=== PATIENT | female | born 1990 | race Caucasian/White ===

== ENCOUNTER → 2017-08-04 | Outpatient (CLI) | payer BC ==
[~2017-08-04] MED LIST: FRRS300 PO; INSPMPHMLG SC; INSUINJ SC; MTR600X PO; PREN1TAB29
== END | disposition home or self-care (01) ==
LOC: C.PAPS 07:56
PROVIDERS: ATTEND Physician Assistant
DX: Z01.419 Encounter for gynecological examination (general) (routine) without abnormal findings (principal)

== ENCOUNTER → 2017-09-26 | Outpatient (CLI) | payer BC ==
[2017-09-26 14:38] LABS: BASO % 0.1 %; BASO ABS # 0.01 K/uL (0-0.2); EOS % 0.7 %; EOS ABS # 0.08 K/uL (0-0.5); HEMATOCRIT 36.6 % (37-47); IG# 0.02 K/uL (0.00-0.02); LYMPH ABS # 2.79 K/uL (1.2-3.4); MEAN CELL VOLUME 85.7 fL (80-100); MEAN CORPUSCULAR HEMOGLOBIN 28.1 pg (25-34); MEAN CORPUSCULAR HGB CONC 32.8 g/dl (32-36); MEAN PLATELET VOLUME 10.1 fL (7.4-10.4); MONO % 5.3 %; MONO ABS # 0.59 K/uL (0.11-0.59); NEUT % 68.7 %; NEUT ABS # 7.69 K/uL (1.4-6.5); PLATELET COUNT 346 K/uL (130-400); RED CELL DISTRIBUTION WIDTH CV 13.1 % (11.5-14.5); RED CELL DISTRIBUTION WIDTH SD 41.3 fL (36.4-46.3); WHITE BLOOD COUNT 11.18 K/uL (4.8-10.8)
== END | disposition home or self-care (01) ==
LOC: C.LAB1850 12:27
PROVIDERS: ATTEND Obstetrics & Gynecology
DX: Z34.91 Encounter for supervision of normal pregnancy, unspecified, first trimester (principal)

== ENCOUNTER 2020-02-28 05:35 | Inpatient (IN) ==
--- NOTE | 2020-02-27 18:29 | History & Physical Report ---
Date of Service February 27, 2020 Assessment & Plan (1) Previous delivery affecting , antepartum: (2) Diet controlled gestational diabetes mellitus: Will plan c/s with tubal ligation in am. will check am bsg. questions answered. consent reviewed and signed. Risks, alternatives and complications of procedure section and bilateral tubal ligation reviewed with patient and include but are not limited to bleeding, infection, anesthesia, injury to maternal or structures, injury to bowel, bladder, vessels, nerves, ureters, delayed complication, failure of procedure with resultant , ectopic which can be medical emergency. Patient desires to proceed and consent signed. She is aware of preop and postop instructions and course. History of Present Illness Chief Complaint: planned repeat c/s and tubal sterilization Primary Care Provider: Chen Meadows MD 29yo at 39wkega on day of her admission for above cc. She denies rom, vb. +FM. No ctx. She had recent neg covid test. She is sure she wants to proceed with permanent sterilization. PNC c/b 1. prior c/s x 2, at last c/s CARLOS was noted to be thin per the surgeon in op note 2. desires sterilization. 3. GDM, diet controlled. PNL rh pos, ri, gbs neg Allergies Allergy/AdvReac Type Severity Reaction Status Date / Time No Known Allergies Allergy Verified 02/27/20 13:11 Home Medications Home Medications Medication Instructions Recorded Confirmed Type PNV cmb#95-ferrous fumarate-FA 1 tab PO QAM 05/16/18 02/27/20 History [] blood sugar diagnostic #200 ea 10/18/19 02/27/20 Rx Patient History Medical History (Updated 02/26/20 @ 10:15 by Anna Carbajal RN) Anemia ASCUS of cervix with negative high risk HPV Gestational diabetes DIET CONTROLLED Surgical History (Updated 02/27/20 @ 18:30 by Sobeida Denny MD, FACOG) delivery delivered x 2 H/O wisdom tooth extraction History of tonsillectomy Hx of arthroscopy RIGHT KNEE Social History (Updated 08/01/19 @ 10:01 by Rosetta Méndez) Preferred Language: Tamazight Communication Ability: Effective Ash Kier Boiler Required: No Beliefs That Will Affect Care: None marital status: Single marital status details: Cristiano Kraus (27) [phone] Current Living Situation: Spouse Current Living Situation Comment: lives with spouse and children, 1 dog, 1 cat, does not change litter current occupational status: unemployed current occupation: homemaker Feels Safe at Home: Yes Smoking Status: Never smoker Second Hand Exposure: No ; Hx Alcohol Use: No Hx Substance Use: No Review of Systems as per hpi Physical Exam Constitutional: WD/WN, vitals as above Respiratory: normal respiratory effort, lungs clear to auscultation Cardiovascular: Rate/Rhythm: regular rate and regular rhythm Gastrointestinal (Abdomen): Percussion/Palpation: abdomen soft (gravid); abdomen nontender Musculoskeletal: nt calves Neurologic: grossly normal Psychiatric: A+Ox3, euthymic affect Genitourinary: OB Exam Abdomen: + vertex (by Jorge's) Coding Level of Care Code None Diagnoses Previous delivery affecting , antepartum O34.219 Diet controlled gestational diabetes mellitus O24.410
[2020-02-28] MEDS ORDERED: LACTATED RINGER'S 1,000 ML IV SCH ×2 (05:45→09:00)
[2020-02-28] MEDS ORDERED: CITRIC ACID/SODIUM CITRATE 15 ML UDC PO SCH (06:00)
[2020-02-28] MEDS ORDERED: CEFAZOLIN 2000MG 2,000 MG/15 ML SYR IV SCH (06:00)
[2020-02-28 06:04] LABS: Basophils # (auto) 0.01 K/uL (0-0.2); Basophils % (auto) 0.1 %; Eosinophils % (auto) 0.8 %; Hematocrit (blood only) 34.4 % (37-47); Hemoglobin 11.4 g/dL (12.0-16.0); Immature Granulocytes # (auto) 0.11 K/uL (0.00-0.02); Immature Granulocytes % (auto) 0.8 %; Lymphocytes # (auto) 3.28 K/uL (1.2-3.4); Lymphocytes % (auto) 25.2 %; Mean Corpuscular Hemoglobin 29.2 pg (25-34); Mean Corpuscular Hgb Conc 33.1 g/dL (32-36); Mean Corpuscular Volume 88.2 fL (80-100); Mean Platelet Volume 10.4 fL (7.4-10.4); Monocytes # (auto) 1.15 K/uL (0.11-0.59); Monocytes % (auto) 8.8 %; Neutrophils # (auto) 8.37 K/uL (1.4-6.5); Neutrophils % (auto) 64.3 %; Platelet Count 214 K/uL (130-400); RDW Coefficient of Variation 13.1 % (11.5-14.5); RDW Standard Deviation 41.7 fL (36.4-46.3); White Blood Count 13.02 K/uL (4.8-10.8)
[2020-02-28] MEDS ORDERED: NALOXONE HCL 0.08 MG in SYRINGE 1.8 ML IV PRN (07:12)
[2020-02-28] MEDS ORDERED: LACTATED RINGER'S 500 ML IV PRN (07:12)
[2020-02-28] MEDS ORDERED: MoRPHine SULFATE PF 1 MG/ML 10 ML AMP/VIAL INT SPINAL ONE (07:12)
[2020-02-28] MEDS ORDERED: ONDANSETRON INJ 2 MG/ML 2 ML VIAL IV PRN ×2 (07:12→08:56)
[2020-02-28] MEDS ORDERED: NALOXONE HCL 0.4 MG/1 ML VIAL/CARP IV PRN (07:12)
[2020-02-28] MEDS ORDERED: ePHEDrine sulfate 50 MG/ML AMP IV PRN (07:12)
[2020-02-28] MEDS ORDERED: DiphenhydrAMINE HCL 50 MG/ML VIAL IV PRN (07:12)
[2020-02-28] MEDS ORDERED: NALOXONE HCL 1 MG in SODIUM CHLORIDE 0.9% 1000ML 1,000 ML IV PRN (07:12)
[2020-02-28] MEDS ORDERED: HYDROmorphone INJ 0.5 MG/0.5 ML SYR IV PRN (07:12)
[2020-02-28] MEDS ORDERED: SODIUM CHLORIDE 0.9% 1000ML 1,000 ML IV SCH (07:15)
[2020-02-28] MEDS ORDERED: NO NARCOTICS OR SEDATIVES SCH (07:15)
--- NOTE | 2020-02-28 07:22 | History & Physical Bridge Note ---
Date of Service February 28, 2020 History & Physical Bridge Note I have examined the patient, reviewed the History & Physical and in the interval since the performance of the History & Physical I have noted the following changes of clinical significance: no changes noted
--- NOTE | 2020-02-28 07:22 | Anesthesiology Consultation ---
Date of Service February 28, 2020 Covid 19 test negative on 02/25/20. Assessment & Plan (1) Encounter for pre-operative examination: Chart Review Chart Review: Acceptable Risk for Surgery and Patient NOT seen in Pre Admission Testing Consults Requested none History Surgery Operation Date: 02/28/20 07:30 Proposed Procedures p Section, - Sobeida Denny MD, FACOG s with Bilateral Tubal Ligation - Sobeida Denny MD, FACOG Height/Weight Height: 5 ft 4 in Weight: 73.482 kg Allergies Allergy/AdvReac Type Severity Reaction Status Date / Time No Known Allergies Allergy Verified 02/27/20 13:11 Medications Home Medications Medication Instructions Recorded Confirmed Last Taken PNV cmb#95-ferrous fumarate-FA 1 tab PO QAM 05/16/18 02/28/20 02/27/20 08:00 [] blood sugar diagnostic #200 ea 10/18/19 02/27/20 Unknown NPO Date Last Intake of Fluids: 02/27/20 Time Last Intake of Fluids: 23:00 Date Last Intake of Solids: 02/27/20 Time Last Intake of Solids: 21:00 Past Medical History Medical History Anemia ASCUS of cervix with negative high risk HPV Gestational diabetes DIET CONTROLLED Past Family History Family History Mother Anemia Dyslipidemia Cervical cancer Ovarian cancer Grandmother (Paternal) Diabetes Hypertension Grandmother (Maternal) Diabetes Grandfather (Paternal) Diabetes Hypertension Grandfather (Maternal) Diabetes Father Hypertension Dyslipidemia Multiple renal calculi Family/Other Breast cancer Gestational diabetes Other Heart disease Past Surgical History Surgical History delivery delivered x 2 H/O wisdom tooth extraction History of tonsillectomy Hx of arthroscopy RIGHT KNEE Social History Smoking Status: Never smoker Do You Dip or Chew Tobacco: No Hx Alcohol Use: No Hx Substance Use: No substance use type: does not use Physical Exam Vital Signs Last Vital Signs Temp 36.9 C 02/28/20 05:43 Pulse 85 02/28/20 07:21 Resp 18 02/28/20 05:43 BP 125/81 02/28/20 07:11 Pulse Ox 98 02/28/20 07:21 Testing Laboratory Results 02/28/20 05:48 Blood Type A Positive 02/28/20 05:48 Antibody Screen NEGATIVE 02/28/20 05:48
[2020-02-28] MEDS ORDERED: MoRPHine SULFATE PF 1 MG/ML 10 ML AMP/VIAL ONE (07:29)
[2020-02-28] MEDS ORDERED: fentaNYL citrate 100 MCG/2 ML VIAL ONE (07:30)
[2020-02-28] MEDS ORDERED: OXYTOCIN 10 UNITS/ML VIAL ONE (07:31)
[2020-02-28] MEDS ORDERED: PHENYLEPHRINE 100MCG/ML 5ML SYR ONE (07:53)
[2020-02-28] MEDS ORDERED: ONDANSETRON INJ 2 MG/ML 2 ML VIAL ONE (08:12)
--- NOTE | 2020-02-28 08:46 | Post Operative Brief Note ---
PG Immediate Post Op with CF Date of Surgery February 28, 2020 Pre & Post Diagnosis Operation Date: 02/28/20 07:30 1. Prior section x2, Desires repeat section 2. Desires sterilization 3. Gestational diabetes, diet controlled. I identified the patient and participated in the time-out.: Yes Procedure Operation Date: 02/28/20 07:30 1. Repeat low transverse section 2. Modified [place] Bilateral Tubal Ligation Surgeon Sobeida Denny MD, FACOG Management Rep Sana Estimated Blood Loss 700 Findings Consistent with Post-Op Diagnosis (viable male apgars pending, normal uterus tubes and ovaries bilaterally) Fluids 1800 Specimens Specimen Description: placenta hold, cord blood Drains Panda Catheter Anesthesia Type Spinal Complications none Disposition Accompanied Patient To Recovery: No Disposition: L&D
--- NOTE | 2020-02-28 08:55 | Operative Report ---
PG Post Operative Report Pre & Post Diagnosis Operation Date: 02/28/20 07:30 1. 39 week intrauterine 2. Gestational diabetes, diet controlled 3. Prior section x 2, desires repeat section 4. Desires sterilization I identified the patient and participated in the time-out.: Yes Procedure Operation Date: 02/28/20 07:30 1. Repeat Low Transverse Section 2. Modified [place] Bilateral Tubal Ligation Surgeon Sobeida Denny MD, FACOG Pharmacy Technician Program Director Sana Estimated Blood Loss 700 Findings Consistent with Post-Op Diagnosis (viable male apgars 9,9. normal uterus, tubes and ovaries bilaterally) Fluids 1800 Specimens cord blood Drains mosqueda Anesthesia Type Spinal Complications none Disposition Accompanied Patient To Recovery: No Disposition: L&D Indications 29yo at 39wks ega presented to LD for planned repeat section and desires sterilization. No evidence of labor. Ready to proceed. Description of Procedure The patient was taken to the operating room and identified. After adequate anesthesia was obtained, she was placed in the supine position with a leftward tilt on the operating table and prepped and draped in the usual sterile fashion. A mosqueda catheter had already been placed. The knife was used to create a Pfannensteil skin incision that was carried down to the underlying layer of fascia. The fascia was nicked in the midline and this opening was extended laterally using Hilliard scissors. Jocelyn clamps were placed on the superior and inferior aspect of the fascial incision tenting it upward and the underlying rectus muscles were dissected off the overlying fascia both sharply and bluntly using Hilliard scissors. The rectus muscles were bluntly in the midline. The peritoneal cavity was bluntly entered into. This opening was stretched. The bladder blade was placed. The vesicouterine peritoneum was elevated and opened up into and the bladder flap was created digitally and bladder blade was replaced. The knife was used to create a hysterotomy and this opening was stretched. The operators hand was placed through the hysterotomy and the bladder blade was removed. The head was elevated and flexed and with fundal pressure the head was delivered. The shoulders and body were rapidly delivered. The cord was clamped and cut and the infant's mouth and nares were bulb suction. The infant was handed off to the awaiting pediatricians. Cord blood was obtained. The placenta was manually expressed. The uterus was ex teriorized and cleared of all clots and debris. Dilute IV Pitocin was begun. The uterine tone was improving. The hysterotomy was closed in a running interlocking fashion using 0 Vicryl followed by a second imbricating layer of 0 Vicryl. The hysterotomy was hemostatic. Attention was turned to the right fallopian tube that was followed out to its fimbriated end. The tube was elevated using a zaida clamp and a knuckle of tube was doubly ligated with 2-0 plain suture and transected. The specimen was sent. The stumps were cauterized with the bovie. The left fallopian tube was identified to its fimbriated end, elevated, double ligated and transected in a similar fashion. The specimen was sent and the stump of tube was cauterized with the bovie.The pelvis was irrigated. The uterus was returned to the abdomen. The gutters were cleared of all clots and debris. The hysterotomy was reinspected and noted to be hemostatic. The fascia was then closed in running fashion using 0 Vicryl. The subcutaneous fat was copiously irrigated and reapproximated using 2-0 chromic. The skin was closed in a subcuticular fashion using 4-0 Vicryl. At this point the procedure was terminated. The patient was transferred to the recovery room in stable condition. All sponge, lap and needle counts are correct x2. I attest to the content of the Intraoperative Record and any orders documented therein. Any exceptions are noted below. OB Procedure charges OB Charges 54173 C/S w/ Tubal
[2020-02-28] MEDS ORDERED: DIPHTHERIA/TETANUS/PERTUSSIS 0.5 ML SYR/VIAL IM ONE (08:56)
[2020-02-28] MEDS ORDERED: BENZOCAINE 20% AER SPR 82.5 GM CAN EXT PRN (08:56)
[2020-02-28] MEDS ORDERED: MAGNESIUM HYDROXIDE SUSP 30 ML UDC PO PRN (08:56)
[2020-02-28] MEDS ORDERED: SUPERCREAM 0.870% 15 GM JAR EXT PRN (08:56)
[2020-02-28] MEDS ORDERED: HYDROCORTISONE ACETATE 25 MG SUPP PR PRN (08:56)
--- NOTE | 2020-02-28 09:18 | Anesthesiology Progress Note ---
Date of Service February 28, 2020 Anesthesia Post Procedure Vital Signs Vital Signs: Temp Pulse Resp BP Pulse Ox 02/28/20 09:15 60 97 02/28/20 09:13 52 L 102/59 L 02/28/20 09:10 51 L 98 02/28/20 09:09 62 94 02/28/20 09:05 61 98 02/28/20 09:03 55 L 94/51 L 02/28/20 09:00 63 18 98 02/28/20 08:55 59 L 98 02/28/20 08:51 63 113/54 L 02/28/20 08:50 36.3 C L 59 L 16 98 02/28/20 07:36 77 98 02/28/20 07:31 74 98 02/28/20 07:26 81 99 02/28/20 07:21 85 98 02/28/20 07:16 83 98 02/28/20 07:11 76 125/81 02/28/20 05:43 36.9 C 18 02/28/20 05:40 88 121/88 Transfer of Care Handoff Completed per policy Notes Mental Status: alert / awake / arousable Patient Amnestic to Procedure: Yes Nausea / Vomiting: adequately controlled Pain: adequately controlled Airway Patency, RR, SpO2: stable & adequate BP & HR: stable & adequate Hydration State: stable & adequate Neuraxial Anesthesia: was administered and sensory block is resolving Anesthetic Complications: no major complications apparent and Pt Satisfied with anesthetic care
[2020-02-28] MEDS ORDERED: PROMETHAZINE HCL 12.5 MG in SODIUM CHLORIDE 0.9% 50 ML IV STA (10:00)
[2020-02-28] MEDS: OXYTOCIN 20 UNITS in LACTATED RINGER'S 1,000 ML IV SCH ×2 (10:39→19:53)
[2020-02-28] MEDS: KETOROLAC 30 MG/ML VIAL IV PRN ×2 (12:27→18:20)
[2020-02-28] MEDS: SIMETHICONE 80 MG CHEW PO SCH (21:10)
[2020-02-28] MEDS: DOCUSATE SODIUM 100 MG CAP PO SCH (21:10)
[2020-02-29] MEDS: KETOROLAC 30 MG/ML VIAL IV PRN (00:40)
[2020-02-29] MEDS ORDERED: DC INTRASPINAL MORPHINE ONE (01:12)
[2020-02-29] MEDS ORDERED: PROMETHAZINE HCL 25 MG in SODIUM CHLORIDE 0.9% 50 ML IV PRN (01:15)
[2020-02-29] MEDS ORDERED: KETOROLAC 30 MG/ML VIAL IV PRN (01:15)
[2020-02-29] MEDS ORDERED: DiphenhydrAMINE HCL 50 MG/ML VIAL IV PRN (01:15)
[2020-02-29] MEDS: OXYCODONE/ACETAMINOPHEN 5mg/325mg TAB PO PRN ×4 (06:20→22:32)
[2020-02-29] MEDS: IBUPROFEN 600 MG TAB PO PRN ×4 (06:21→22:31)
--- NOTE | 2020-02-29 06:30 | Obstetrical Progress Note ---
Date of Service <Rodrigo Macedo MD - Last Filed: 02/29/20 06:49> February 29, 2020 Assessment & Plan <Rodrigo Macedo MD - Last Filed: 02/29/20 06:49> (1) : - Feels well today. Eating well, voiding well, ambulating well. - Pain well controlled with analgesics - Routine care - After discharge will have 6 week followup Subjective <Rodrigo Macedo MD - Last Filed: 02/29/20 06:49> Ronit is a 29 y/o female ; POD #1 following delivery at 39+ weeks; doing well this morning; light abdominal cramping & 3/10 pain well managed on analgesics; voiding well; tolerating meals overnight and able to ambulate some. Has some persistent spotting with some improvement this morning. Review of Systems Constitutional: denies fever, chills, sweat, headache Respiratory: denies shortness of breath, difficulty breathing Cardiac: denies chest pain, palpitations, chest pressure Breast: denies breast pain : denies dysuria Physical Exam <Rodrigo Macedo MD - Last Filed: 02/29/20 06:49> General: Alert, oriented. No acute distress. Cardiac: Regular rate and rhythm, no murmurs/rubs/gallops. Respiratory: Clear to auscultation bilaterally a/p, no wheezes/rales/rhonchi. No increased work of breathing. Symmetrical chest rise. No respiratory distress. Abdomen: Soft, nontender, nondistended. Bowel sounds present. Uterus: Uterine fundus firm, palpable 1cm below umbilicus. Surgical scar clean and healing well. Lower Extremities: No lower extremity edema or swelling. No deep calf pain. Petra's negative bilaterally. Results & Data <Rodrigo Macedo MD - Last Filed: 02/29/20 06:49> Vital Signs (Past 12 Hours) Vital Signs Temp Pulse Resp BP Pulse Ox 02/29/20 04:00 36.7 C 76 18 108/73 02/29/20 01:45 18 98 02/29/20 00:40 18 98 02/28/20 23:45 36.8 C 70 18 109/66 97 02/28/20 22:20 18 97 02/28/20 21:15 18 98 02/28/20 20:20 18 100 02/28/20 19:40 36.8 C 69 18 109/65 99 02/28/20 19:20 18 99 <Sammi Castro DO - Last Filed: 02/29/20 07:56> Co-Signing Physician Notes Resident Physician Supervision Note: I was present with Dr. Cervantes during the history and exam. I discussed the case with the resident and agree with the findings and plan as documented in the note. Any exceptions or clarifications are listed here: POD#1 doing well. Continue routine postop care. Documented By: Sammi Castro DO Resident Activity Tracking <Rodrigo Macedo MD - Last Filed: 02/29/20 06:49> Resident Involvement: Resident Care Provided Care Provided: OB Delivery
[2020-02-29 08:16] LABS: Basophils # (auto) 0.01 K/uL (0-0.2); Basophils % (auto) 0.1 %; Eosinophils # (auto) 0.09 K/uL (0-0.5); Eosinophils % (auto) 0.7 %; Hematocrit (blood only) 34.8 % (37-47); Hemoglobin 11.5 g/dL (12.0-16.0); Immature Granulocytes # (auto) 0.08 K/uL (0.00-0.02); Immature Granulocytes % (auto) 0.6 %; Lymphocytes # (auto) 1.85 K/uL (1.2-3.4); Lymphocytes % (auto) 14.6 %; Mean Corpuscular Hemoglobin 29.7 pg (25-34); Mean Corpuscular Volume 89.9 fL (80-100); Mean Platelet Volume 10.8 fL (7.4-10.4); Monocytes # (auto) 0.95 K/uL (0.11-0.59); Monocytes % (auto) 7.5 %; Neutrophils # (auto) 9.68 K/uL (1.4-6.5); Neutrophils % (auto) 76.5 %; Platelet Count 219 K/uL (130-400); RDW Coefficient of Variation 13.5 % (11.5-14.5); Red Blood Count 3.87 M/uL (4.2-5.4); White Blood Count 12.66 K/uL (4.8-10.8)
[2020-02-29] MEDS: FERROUS SULFATE 325 MG TAB PO SCH (08:33)
[2020-02-29] MEDS: SIMETHICONE 80 MG CHEW PO SCH ×6 (08:33→21:05)
[2020-02-29] MEDS: PRENATAL VITAMIN 1 TAB PO SCH (08:33)
[2020-02-29] MEDS: DOCUSATE SODIUM 100 MG CAP PO SCH ×2 (08:33→21:05)
--- NOTE | 2020-02-29 10:52 | Anesthesiology Progress Note ---
Date of Service February 29, 2020 Anesthesia Post Procedure Vital Signs Vital Signs: Temp Pulse Pulse Resp BP BP BP 02/29/20 07:20 36.5 C 72 16 100/64 02/29/20 04:00 36.7 C 76 18 108/73 02/29/20 01:45 18 02/29/20 00:40 18 02/28/20 23:45 36.8 C 70 18 109/66 02/28/20 22:20 18 02/28/20 21:15 18 02/28/20 20:20 18 02/28/20 19:40 36.8 C 69 18 109/65 02/28/20 19:20 18 02/28/20 18:25 16 02/28/20 17:30 18 02/28/20 16:20 36.5 C 63 16 106/70 02/28/20 15:44 18 02/28/20 14:45 16 02/28/20 13:40 36.9 C 59 L 16 106/68 02/28/20 13:05 72 02/28/20 13:00 68 02/28/20 12:55 61 02/28/20 12:54 60 99/55 L 02/28/20 12:50 60 02/28/20 12:45 61 02/28/20 12:40 59 L 02/28/20 12:35 70 02/28/20 12:30 72 02/28/20 12:25 71 02/28/20 12:24 72 100/66 02/28/20 12:20 65 02/28/20 12:15 69 02/28/20 12:10 69 02/28/20 12:05 83 02/28/20 12:00 74 02/28/20 11:55 72 02/28/20 11:54 71 112/60 02/28/20 11:50 71 02/28/20 11:45 83 02/28/20 11:40 65 02/28/20 11:35 66 02/28/20 11:30 80 02/28/20 11:25 72 02/28/20 11:24 83 124/75 02/28/20 11:20 71 02/28/20 11:15 59 L 02/28/20 11:10 63 02/28/20 11:09 18 02/28/20 11:05 61 02/28/20 11:00 54 L 02/28/20 10:55 64 02/28/20 10:53 61 116/71 Pulse Ox 02/29/20 07:20 97 02/29/20 04:00 02/29/20 01:45 98 02/29/20 00:40 98 02/28/20 23:45 97 02/28/20 22:20 97 02/28/20 21:15 98 02/28/20 20:20 100 02/28/20 19:40 99 02/28/20 19:20 99 02/28/20 18:25 99 02/28/20 17:30 99 02/28/20 16:20 100 02/28/20 15:44 100 02/28/20 14:45 100 02/28/20 13:40 99 02/28/20 13:05 100 02/28/20 13:00 99 02/28/20 12:55 100 02/28/20 12:54 02/28/20 12:50 99 02/28/20 12:45 100 02/28/20 12:40 100 02/28/20 12:35 100 02/28/20 12:30 100 02/28/20 12:25 100 02/28/20 12:24 02/28/20 12:20 100 02/28/20 12:15 100 02/28/20 12:10 100 02/28/20 12:05 98 02/28/20 12:00 100 02/28/20 11:55 100 02/28/20 11:54 02/28/20 11:50 100 02/28/20 11:45 100 02/28/20 11:40 99 02/28/20 11:35 99 02/28/20 11:30 100 02/28/20 11:25 100 02/28/20 11:24 02/28/20 11:20 100 02/28/20 11:15 100 02/28/20 11:10 100 02/28/20 11:09 02/28/20 11:05 100 02/28/20 11:00 97 02/28/20 10:55 100 02/28/20 10:53 Transfer of Care Handoff Completed per policy Notes Mental Status: alert / awake / arousable Patient Amnestic to Procedure: Yes Nausea / Vomiting: adequately controlled Pain: adequately controlled Airway Patency, RR, SpO2: stable & adequate BP & HR: stable & adequate Hydration State: stable & adequate Neuraxial Anesthesia: was administered and sensory block resolved Anesthetic Complications: no major complications apparent and Pt Satisfied with anesthetic care
[2020-03-01 06:08] LABS: Hemoglobin 10.4 g/dL (12.0-16.0)
[2020-03-01] MEDS: OXYCODONE/ACETAMINOPHEN 5mg/325mg TAB PO PRN (06:16)
[2020-03-01] MEDS: IBUPROFEN 600 MG TAB PO PRN (06:17)
--- NOTE | 2020-03-01 08:29 | Obstetrical Progress Note ---
Date of Service March 01, 2020 Assessment & Plan (1) Status post section routine follow-up: doing well routine care. desires d/c home. instructions reviewed. plan f/u 6wks pp care. reviewed percocet, checked on pa pdmp and no issues identified. Subjective Ambulation: ambulating normally Voiding: no voiding problems Passing Gas:: Yes Diet Tolerance:: regular diet Lochia:: Small Feeding Type:: breast feeding good pain control Physical Exam Constitutional WD/WN, vitals as above Gastrointestinal (Abdomen) Percussion/Palpation: abdomen soft; abdomen nontender ff 2 down nt Musculoskeletal nt calves Neurologic grossly normal Psychiatric A+Ox3, euthymic affect Results & Data ([facility]) Vital Signs (Past 12 Hours) Vital Signs Temp Pulse Resp BP 03/01/20 00:25 98.4 F 68 18 111/73
[2020-03-01] MEDS: DOCUSATE SODIUM 100 MG CAP PO SCH (08:38)
[2020-03-01] MEDS: PRENATAL VITAMIN 1 TAB PO SCH (08:38)
[2020-03-01] MEDS: FERROUS SULFATE 325 MG TAB PO SCH (08:38)
[2020-03-01] MEDS: SIMETHICONE 80 MG CHEW PO SCH (08:38)
--- NOTE | 2020-03-01 22:40 | Discharge Summary ---
Date of Service Date of admission: February 28, 2020 Date of discharge: March 01, 2020 Admission HPI Per Admitting Provider Admission diagnoses: 39+wks ega, prior c/s x 2, desires repeat c/s, desires sterilization Discharge diagnoses: same Discharge Data Consultations 02/28/20 05:39 Consult Anesthesiology Stat Procedures Performed Operation Date: 02/28/20 07:30 1. Repeat Low Transverse Section 2. Modified [place] Bilateral Tubal Ligation Hospital Course (1) Previous delivery affecting , antepartum: (2) Diet controlled gestational diabetes mellitus: (3) Encounter for sterilization: The patient underwent the above stated procedure without incident and her postoperative course and recovery was uncomplicated. On her postoperative day #2 she was tolerating a regular diet, voiding spontaneously, ambulating without p roblem and was using oral meds for adequate pain control. Her postoperative hemoglobin was 10.4. She was given written and verbal discharge instructions and told to followup in office at 6wks. She was given appropriate pain medicine prescriptions. Coding Level of Care Code None Diagnoses Previous delivery affecting , antepartum O34.219 Diet controlled gestational diabetes mellitus O24.410 Encounter for sterilization Z30.2
== END 2020-03-01 11:45 | disposition home or self-care (01) | DRG 785 ==
LOC: ASU 05:35 → 4S1 05:36 → 4S2 13:09